=== PATIENT | female | born 1960 | race Asian ===

== ENCOUNTER 2017-11-09 09:27 | Emergency (ER) | payer OTHER ==
[~2017-11-09] VITALS: Ht 154.9 cm; Wt 87.5 kg
[~2017-11-09 09:27] MED LIST: ALBUTEROL0.083 % IN; ASA LO-DOSE81 MG OR; FLUT0.05 NAS; FLUTMIS6 INH; IMDUR30 MG PO; LIPITOR20 MG PO; MECLIZINE25 MG OR; METO50TA27 PO; NAPROSYN500 MG OR; NITR0.4S2 SL; PANT40TA PO; PLAVIX75 MG PO; POT CHLORIDE20 ME2 OR; PROAIR HFA IN; SINGULAIR10 MG PO; SPIRIVA IN; TRAZ50TA36 PO
[2017-11-09 09:30] VITALS: TEMP 98
[2017-11-09 10:19] VITALS: BP 158/78
== END 2017-11-09 10:20 | disposition home or self-care (01) ==
LOC: ED 09:27
DX: J44.1 Chronic obstructive pulmonary disease with (acute) exacerbation (principal); J45.998 Other asthma
CPT/HCPCS: 94664; 99282